=== PATIENT | female | born 1975 | race Caucasian/White ===

== ENCOUNTER → 2019-02-14 | Outpatient (CLI) | payer BC, MEDICARE ==
[2019-02-14 16:21] LABS: HEMATOCRIT 38 % (35-52); MEAN CORPUSCULAR HEMOGLOBIN 27 PG (25-34); MEAN CORPUSCULAR HGB CONC 32 G/DL (32-36); MEAN CORPUSCULAR VOLUME 85 FL (80-99); WHITE BLOOD COUNT 7.4 10^3/uL (4.3-11.0)
[2019-02-14 16:22] LABS: BASOPHILS % (AUTO) 1 % (0-10); EOSINOPHILS # (AUTO) 0.2 10^3/uL (0.0-0.3); EOSINOPHILS % (AUTO) 3 % (0-10); LYMPHOCYTES # (AUTO) 1.7 X 10^3 (1.0-4.0); LYMPHOCYTES % (AUTO) 23 % (12-44); MEAN PLATELET VOLUME 10.2 FL (7.4-10.4); MONOCYTES # (AUTO) 0.7 X 10^3 (0.0-1.0); MONOCYTES % (AUTO) 9 % (0-12); NEUTROPHILS # (AUTO) 4.7 X 10^3 (1.8-7.8); NEUTROPHILS % (AUTO) 64 % (42-75); PLATELET COUNT 393 10^3/uL (130-400); RED CELL DISTRIBUTION WIDTH 16.7 % (10.0-14.5)
[2019-02-14 16:41] LABS: CARBON DIOXIDE 25 MMOL/L (21-32); CHLORIDE 96 MMOL/L (98-107); POTASSIUM 4.3 MMOL/L (3.6-5.0); SODIUM 136 MMOL/L (135-145)
[2019-02-14 16:42] LABS: ALANINE AMINOTRANSFERASE 58 U/L (0-55); ALBUMIN 4.3 GM/DL (3.2-4.5); ALKALINE PHOSPHATASE 114 U/L (40-136); BILIRUBIN,TOTAL 0.4 MG/DL (0.1-1.0); BUN/CREATININE RATIO 25; CALCIUM 9.7 MG/DL (8.5-10.1); CREATININE SERUM 0.67 MG/DL (0.60-1.30); GFR ESTIMATED > 60; GLUCOSE 269 MG/DL (70-105); TOTAL PROTEIN 8.2 GM/DL (6.4-8.2)
== END ==
LOC: LAB FS 14:31
PROVIDERS: ATTEND Internal Medicine Critical Care Medicine
DX: E84.0 Cystic fibrosis with pulmonary manifestations (principal)
CPT/HCPCS: 36415; 80053; 85025

== ENCOUNTER → 2019-02-18 | Outpatient (CLI) | payer BC, MEDICARE ==
[2019-02-18 18:03] LABS: BASOPHILS % (AUTO) 1 % (0-10); EOSINOPHILS # (AUTO) 0.2 10^3/uL (0.0-0.3); EOSINOPHILS % (AUTO) 3 % (0-10); HEMATOCRIT 37 % (35-52); HEMOGLOBIN 11.5 G/DL (11.5-16.0); LYMPHOCYTES % (AUTO) 25 % (12-44); MEAN CORPUSCULAR HEMOGLOBIN 27 PG (25-34); MEAN CORPUSCULAR HGB CONC 31 G/DL (32-36); MEAN CORPUSCULAR VOLUME 87 FL (80-99); MEAN PLATELET VOLUME 10.1 FL (7.4-10.4); MONOCYTES # (AUTO) 0.5 X 10^3 (0.0-1.0); MONOCYTES % (AUTO) 6 % (0-12); NEUTROPHILS # (AUTO) 5.2 X 10^3 (1.8-7.8); NEUTROPHILS % (AUTO) 65 % (42-75); PLATELET COUNT 321 10^3/uL (130-400); RED CELL DISTRIBUTION WIDTH 17.5 % (10.0-14.5)
[2019-02-18 18:04] LABS: BASOPHILS # (AUTO) 0.1 10^3/uL (0.0-0.1)
[2019-02-18 18:10] LABS: ALANINE AMINOTRANSFERASE 37 U/L (0-55); ALKALINE PHOSPHATASE 109 U/L (40-136); BILIRUBIN,TOTAL 0.2 MG/DL (0.1-1.0); BUN/CREATININE RATIO 9; CALCIUM 9.4 MG/DL (8.5-10.1); CARBON DIOXIDE 26 MMOL/L (21-32); CHLORIDE 94 MMOL/L (98-107); CREATININE SERUM 0.65 MG/DL (0.60-1.30); GFR ESTIMATED > 60; GLUCOSE 287 MG/DL (70-105); POTASSIUM 4.4 MMOL/L (3.6-5.0); SODIUM 134 MMOL/L (135-145); TOTAL PROTEIN 7.7 GM/DL (6.4-8.2)
[2019-02-18 18:11] LABS: ALBUMIN 4.2 GM/DL (3.2-4.5)
== END ==
LOC: LAB FS 17:24
PROVIDERS: ATTEND Internal Medicine
DX: E84.9 Cystic fibrosis, unspecified (principal)
CPT/HCPCS: 36415; 80053; 85025

== ENCOUNTER → 2019-05-22 | Outpatient (CLI) | payer MEDICARE ==
[2019-05-22 14:53] LABS: BASOPHILS # (AUTO) 0.1 10^3/uL (0.0-0.1); BASOPHILS % (AUTO) 0 % (0-10); EOSINOPHILS # (AUTO) 0.1 10^3/uL (0.0-0.3); EOSINOPHILS % (AUTO) 1 % (0-10); HEMATOCRIT 46 % (35-52); HEMOGLOBIN 15.2 G/DL (11.5-16.0); LYMPHOCYTES # (AUTO) 1.6 X 10^3 (1.0-4.0); LYMPHOCYTES % (AUTO) 10 % (12-44); MEAN CORPUSCULAR HEMOGLOBIN 30 PG (25-34); MEAN CORPUSCULAR HGB CONC 33 G/DL (32-36); MEAN CORPUSCULAR VOLUME 91 FL (80-99); MEAN PLATELET VOLUME 10.2 FL (7.4-10.4); MONOCYTES # (AUTO) 0.7 X 10^3 (0.0-1.0); MONOCYTES % (AUTO) 5 % (0-12); NEUTROPHILS % (AUTO) 84 % (42-75); PLATELET COUNT 378 10^3/uL (130-400); RED CELL DISTRIBUTION WIDTH 12.4 % (10.0-14.5); WHITE BLOOD COUNT 15.4 10^3/uL (4.3-11.0)
[2019-05-22 15:16] LABS: ALANINE AMINOTRANSFERASE 23 U/L (0-55); ALBUMIN 4.3 GM/DL (3.2-4.5); ALKALINE PHOSPHATASE 161 U/L (40-136); BILIRUBIN,TOTAL 0.5 MG/DL (0.1-1.0); BUN/CREATININE RATIO 12; CALCIUM 9.9 MG/DL (8.5-10.1); CARBON DIOXIDE 23 MMOL/L (21-32); CHLORIDE 101 MMOL/L (98-107); CREATININE SERUM 0.77 MG/DL (0.60-1.30); GFR ESTIMATED > 60; GLUCOSE 174 MG/DL (70-105); POTASSIUM 4.2 MMOL/L (3.6-5.0); SODIUM 135 MMOL/L (135-145); TOTAL PROTEIN 8.8 GM/DL (6.4-8.2)
[2019-05-22 15:32] LABS: EOSINOPHILS % (MANUAL) 1 %; LYMPHOCYTES % (MANUAL) 10 %; MONOCYTES % (MANUAL) 5 %; NEUTROPHILS % (MANUAL) 84 %; SPHEROCYTES SLIGHT
== END ==
LOC: MERGE 14:36 → LAB 14:36
PROVIDERS: ATTEND Internal Medicine Critical Care Medicine
DX: E84.0 Cystic fibrosis with pulmonary manifestations (principal); Z79.899 Other long term (current) drug therapy
CPT/HCPCS: 36415; 80053; 85007; 85027

== ENCOUNTER 2020-08-24 13:26 | Outpatient (RCR) | payer MEDICARE ==
[~2020-08-24] VITALS: Ht 160 cm; Wt 57.0 kg
[2020-08-24 14:00] VITALS: BP 127/87
[2020-08-24] MEDS ORDERED: ALTEPLASE 2 MG (CATHFLO) IV PRN (14:00)
[2020-08-24] MEDS ORDERED: CATHETER FLUSH 10 ML SYR IV SCH (14:00)
[2020-08-24] MEDS ORDERED: CATHETER FLUSH 10 ML SYR IV PRN (14:00)
== END 2020-11-22 | disposition home or self-care (01) ==
LOC: SDC 13:26
PROVIDERS: ATTEND Internal Medicine Critical Care Medicine
DX: E84.0 Cystic fibrosis with pulmonary manifestations (principal); Z95.828 Presence of other vascular implants and grafts
CPT/HCPCS: 96523

== ENCOUNTER 2021-02-02 23:12 | Emergency (ER) | payer MEDICARE ==
[~2021-02-02] VITALS: Ht 160 cm; Wt 58.0 kg
--- NOTE | 2021-02-02 23:31 | ED General ---
General Chief Complaint: Glucose Problems Stated Complaint: LOW BLOOD SUGAR Source of Information: Patient History of Present Illness Date Seen by Provider: Feb 02, 2021 Time Seen by Provider: 23:14 Initial Comments 45 yo female presenting with complaint of low blood sugar. She took 4 units of Novolog with an evening snack and then 6 units of Levemir at bedtime. she has Cystic Fibrosis related diabetes and follows with Dr. Troy Zapien at [facility]. She just got a remote sensor for monitoring her glucose 2 days ago. Tonight it was reading low and then alarmed and woke her up when it was 55. She got up and ate Honey Nut Cheerios and had a Butterfinger. She was worried that the sugar was going to plummet again so she had her family berg her to the ED. On arrival to the ED her monitor is reading 124 and ED glucometer is 149. She was anxious and worried that the sugar was going to drop again so she rushed to be evaluated. She had let her Glucagon and not gotten a refill since she had not needed it for a while. Timing/Duration: 1/2 Hour Associated Systoms: No Chest Pain, No Cough, No Diaphoresis, No Fever/Chills, No Headaches, No Loss of Appetite; Malaise, Nausea/Vomiting; No Rash, No Seizure, No Shortness of Air, No Syncope, No Weakness Allergies and Home Medications Allergies Coded Allergies: Penicillins (Verified Allergy, Intermediate, 08/24/20) Sulfa (Sulfonamide Antibiotics) (Verified Allergy, Intermediate, 08/24/20) codeine (Verified Allergy, Intermediate, 08/24/20) vancomycin (Verified Allergy, Intermediate, 08/24/20) Home Medications Glucagon 1 Mg/0.2 Ml Syringe, 1 MG SQ ONCE PRN for HYPOGLYCEMIA 1 mg Subcutaneous x 1. May repeat x1 in 15 minutes if glucose not coming up. Prescribed by: MAYDA LESLIE on 02/02/21 1769 Patient Home Medication List Home Medication List Reviewed: Yes Review of Systems Review of Systems Constitutional: see HPI EENTM: no symptoms reported Respiratory: no symptoms reported Cardiovascular: no symptoms reported Gastrointestinal: see HPI Genitourinary: no symptoms reported Musculoskeletal: no symptoms reported Skin: no symptoms reported Psychiatric/Neurological: Anxiety Past Frheyol-Wlsodg-Pfnqff Hx Patient Social History Tobacco Use?: No Past Medical History Surgery/Hospitalization HX: Cystic Fibrosis, Diabetes related to Cystic Fibrosis Surgeries: No Respiratory: Yes (Cystic Fibrosis) Endocrine: Yes Diabetes, Insulin dep Physical Exam Vital Signs Vital Signs - First Documented 02/02/21 23:17 Temp 36.8 Pulse 113 Resp 22 B/P (MAP) 148/73 (98) Pulse Ox 97 O2 Delivery Room Air Capillary Refill : Height, Weight, BMI Height: '" Weight: lbs. oz. kg; BMI Method: General Appearance: WD/WN, Anxious Respiratory: Chest Non Tender, Lungs Clear, Normal Breath Sounds Cardiovascular: Normal Peripheral Pulses, Tachycardia Neurologic/Psychiatric: Alert, Oriented x3 Skin: Normal Color, Warm/Dry Progress/Results/Core Measures Suspected Sepsis SIRS Temperature: Pulse: Respiratory Rate: Blood Pressure / Mean: Results/Orders Lab Results Laboratory Tests Test 02/02/21 23:21 Range/Units Glucometer 149 H 70-110 MG/DL My Orders Orders - MAYDA LESLIE MD Accucheck Stat ONCE (02/02/21 23:16) Accucheck Stat ONCE (02/02/21 23:55) Vital Signs/I&O 02/02/21 23:17 Temp 36.8 Pulse 113 Resp 22 B/P (MAP) 148/73 (98) Pulse Ox 97 O2 Delivery Room Air Capillary Refill : Point of Care Testing Finger Stick Blood Glucose: 149 Blood Glucose Action Taken: DOCTOR AWARE Progress Note #1: Progress Note Accucheck on arrival was 149. Her implanted glucometer read 124. Will watch her for 30 minutes and repeat to see what her glucose is doing. Progress Note #2: Time: 23:54 Progress Note On recheck her meter read 249 and our meter read 217. She felt better. Will discharge to home and have her work with providers about her meds. Refill Glucagon for emergency sent to [facility] during the day. Departure Impression Primary Impression: Hypoglycemia associated with diabetes Disposition: 01 HOME, SELF-CARE Condition: Improved Departure-Patient Inst. Decision time for Depature: 23:57 Referrals: KRISTI CONRAD MD (PCP/Family) Primary Care Physician Patient Instructions: Low Blood Sugar, Adult ED Add. Discharge Instructions: Work with Dr. Zapien and your regular providers about your sugars. All discharge instructions reviewed with patient and/or family. Voiced understanding. Scripts Glucagon (Gvoke Pfs 2-Pack Syringe) 1 Mg/0.2 Ml Syringe 1 MG SQ ONCE PRN for HYPOGLYCEMIA for 7 Days, #2 SYRINGE 0 Refills 1 mg Subcutaneous x 1. May repeat x1 in 15 minutes if glucose not coming up. Prov: MAYDA LESLIE MD 02/02/21 MAYDA LESLIE MD Feb 02, 2021 23:31
[2021-02-02] MEDS ORDERED: GLUC1SYR SQ (23:42)
[2021-02-03 00:05] VITALS: BP 135/73
== END 2021-02-03 00:07 | disposition home or self-care (01) ==
LOC: EDUNIT# 23:12 → ER FS 23:14
DX: E11.649 Type 2 diabetes mellitus with hypoglycemia without coma (principal); R00.0 Tachycardia, unspecified
CPT/HCPCS: 82947

== ENCOUNTER 2021-12-12 00:05 | Emergency (ER) | payer MEDICARE ==
[~2021-12-12 00:05] MED LIST: GLUC1SYR SQ
--- NOTE | 2021-12-12 00:19 | ED General ---
General Chief Complaint: Glucose Problems Stated Complaint: LOW BLOOD SUGAR History of Present Illness Date Seen by Provider: December 12, 2021 Time Seen by Provider: 00:14 Initial Comments 46-year-old female with PMH of diabetes mellitus, is here with complaints of concern for low blood sugar on her monitor at home. Patient is concerned that if she was going to get hypoglycemia pass out she would rather in the hospital than at home. Patient drank a whole bottle of orange juice and in the ER when we checked her blood sugar it was 97. Patient is asymptomatic and has no complaints. Patient states she panicked for no reason and does not need to come to the ER. Allergies and Home Medications Allergies Coded Allergies: Penicillins (Verified Allergy, Intermediate, 08/24/20) Sulfa (Sulfonamide Antibiotics) (Verified Allergy, Intermediate, 08/24/20) codeine (Verified Allergy, Intermediate, 08/24/20) vancomycin (Verified Allergy, Intermediate, 08/24/20) Patient Home Medication List Home Medication List Reviewed: Yes Glucagon (Gvoke Pfs 2-Pack Syringe) 1 Mg/0.2 Ml Syringe, 1 MG SQ ONCE PRN for HYPOGLYCEMIA Prescribed by: MAYDA LESLIE on 02/02/21 2266 Review of Systems Review of Systems Constitutional: no symptoms reported EENTM: no symptoms reported Respiratory: no symptoms reported Cardiovascular: no symptoms reported Gastrointestinal: no symptoms reported Genitourinary: no symptoms reported Musculoskeletal: no symptoms reported Skin: no symptoms reported Psychiatric/Neurological: Anxiety Hematologic/Lymphatic: No Symptoms Reported Immunological/Allergic: no symptoms reported Past Hhutmwf-Pyaqqg-Qzjwfy Hx Patient Social History Tobacco Use?: No Use of E-Cig and/or Vaping dev: No Substance use?: No Alcohol Use?: No Past Medical History Surgery/Hospitalization HX: Cystic Fibrosis, Diabetes related to Cystic Fibrosis Surgeries: No Respiratory: Yes (Cystic Fibrosis) Endocrine: Yes Diabetes, Insulin dep Physical Exam Vital Signs Capillary Refill : Height, Weight, BMI Height: '" Weight: lbs. oz. kg; 22.00 BMI Method: General Appearance: No Apparent Distress, WD/WN, Anxious Neck: Full Range of Motion Neurologic/Psychiatric: Alert, Oriented x3 Skin: Normal Color Progress/Results/Core Measures Suspected Sepsis SIRS Temperature: Pulse: Respiratory Rate: Blood Pressure / Mean: Results/Orders Lab Results Laboratory Tests Test 12/12/21 00:11 Range/Units Glucometer 93 70-110 MG/DL Vital Signs/I&O Capillary Refill : Progress Note : Progress Note BLOOD SUGAR CHECK - Concerns for hypoglycemia - Blood sugar stable -- Advised to go home and eat some eggs, since pt only had a brownie and icecream for dinner. Departure Impression Primary Impression: Hypoglycemia associated with diabetes Disposition: HOME, SELF-CARE Condition: Stable Departure-Patient Inst. Referrals: NO,LOCAL PHYSICIAN (PCP/Family) Primary Care Physician Patient Instructions: Low Blood Sugar, Adult (DC), Diabetic Meal Planning Add. Discharge Instructions: -- Advised to go home and eat some eggs, since pt only had a brownie and icecream for dinner. - Follow up with PCP within a week All discharge instructions reviewed with patient and/or family. Voiced understanding. WILLIAM GONZALES MD December 12, 2021 00:19
[2021-12-12 00:22] VITALS: BP 182/97
== END 2021-12-12 00:24 | disposition home or self-care (01) ==
LOC: EDUNIT# 00:05 → ER FS 00:07
DX: E11.649 Type 2 diabetes mellitus with hypoglycemia without coma (principal)
CPT/HCPCS: 82947; 99281